=== PATIENT | male | born 1970 | race Caucasian/White ===

== ENCOUNTER → 2019-08-04 10:28 | Outpatient (BNVA) | payer BC, SELFPAY | PROVIDERS: Family Provider Nurse Practitioner; PCP Nurse Practitioner; Referring Provider Nurse Practitioner; Visit Provider Specialist | DX: G43.711 Chronic migraine without aura, intractable, with status migrainosus (principal) | CPT/HCPCS: 99204; 99214 ==

== ENCOUNTER → 2019-11-05 13:12 | Outpatient (BNVA) | payer BC, SELFPAY | PROVIDERS: Family Provider Nurse Practitioner; PCP Nurse Practitioner; Visit Provider Specialist | DX: G43.711 Chronic migraine without aura, intractable, with status migrainosus (principal) | CPT/HCPCS: 99213 ==

== ENCOUNTER → 2020-05-25 16:34 | Outpatient (BNVA) | payer SELFPAY | PROVIDERS: Family Provider Nurse Practitioner; PCP Nurse Practitioner; Visit Provider Nurse Practitioner Family | DX: S61.412A Laceration without foreign body of left hand, initial encounter (principal); X58.XXXA Exposure to other specified factors, initial encounter | CPT/HCPCS: 73130 ==

== ENCOUNTER → 2020-06-16 12:11 | Outpatient (BNVA) | payer BC, SELFPAY | PROVIDERS: Family Provider Nurse Practitioner; PCP Nurse Practitioner; Visit Provider Specialist | DX: G43.711 Chronic migraine without aura, intractable, with status migrainosus (principal) | CPT/HCPCS: 99213 ==

== ENCOUNTER → 2020-08-05 11:25 | Outpatient (BNVA) | payer BC, SELFPAY | PROVIDERS: Family Provider Nurse Practitioner; PCP Nurse Practitioner; Visit Provider Nurse Practitioner Family | DX: Z00.00 Encounter for general adult medical examination without abnormal findings (principal); Z12.5 Encounter for screening for malignant neoplasm of prostate; Z13.6 Encounter for screening for cardiovascular disorders; E55.9 Vitamin D deficiency, unspecified; R53.83 Other fatigue; G43.711 Chronic migraine without aura, intractable, with status migrainosus; Z79.899 Other long term (current) drug therapy; Z12.11 Encounter for screening for malignant neoplasm of colon | CPT/HCPCS: 80053; 80061; 81003; 82306; 83036; 84443; 85025; G0103 ==

== ENCOUNTER → 2020-09-27 11:17 | Outpatient (BNVA) | payer BC, SELFPAY | PROVIDERS: Family Provider Nurse Practitioner; PCP Nurse Practitioner Family; Visit Provider Internal Medicine | DX: Z12.11 Encounter for screening for malignant neoplasm of colon (principal); Z20.822 Contact with and (suspected) exposure to COVID-19 | CPT/HCPCS: 87635 ==

== ENCOUNTER 2020-10-01 08:41 | Day surgery (SDC) | payer BC, SELFPAY ==
[2020-09-29 12:08] VITALS: BMI 25.7
--- NOTE | 2020-10-01 08:55 | ANES.PREANE2 ---
Pre-Anesthetic Assessment Pre-Anesthetic Assessment: Height/Weight: Height 1.83 m Weight 86.183 kg Preop Diagnosis: Screening Proposed Procedure: Operation Date: 10/01/20 10:00 Proposed Procedures p Colonoscopy 64271 Z12.11(Not Applicable) - Jerry Ortiz MD Familial anesthetic complications: None Was Beta Lencho taken within 24 hours: N/A Was Clonidine taken within 24 hours: N/A Last intake: NPO > 8 hrs Social: Social History: No alcohol and No tobacco Exam: Pre-Anes Outpt Exam: alert, oriented x 3, clear to auscultation bilaterally and regular rate & rhythm Airway: Cervical ROM: WNL MP: 1 Dentition: Full Neuropsych: Neuropsych: [facility] Anesthetic Plan: ASA status: 1 Anesthesia: MAC Risk of > 500 ml blood loss (7ml/kg in children): No PFSH Anesthesia PFSH: Medical History (Updated 08/08/20 @ 19:10 by DEBORAH Mcgrath) Chronic migraine without aura, intractable, with status migrainosus Fatigue Hand injury Hematuria Hypertension screen Laceration of hand with foreign body Medication management Prostate cancer screening Sleep apnea Family History Other CAD (coronary artery disease) Denies family history of Diabetes Cancer Hypertension Stroke Social History Smoking and tobacco status: never smoked Alcohol intake: current Alcohol intake frequency: holidays/special occasions only History of recent travel: No Data Anesthesia Cardiac Studies: No Data to Display
--- NOTE | 2020-10-01 09:06 | W.PM.OPSFHP ---
Same Day Surgery H&P Indication for Procedure/HPI DATE OF PROCEDURE: October 01, 2020 CHIEF COMPLAINT/INDICATIONFOR SURGICAL PROCEDURE: Routine screening average risk PREOP DIAGNOSIS: Screening PLANNED PROCEDRUE: Operation Date: 10/01/20 10:00 Proposed Procedures p Colonoscopy 88970 Z12.11(Not Applicable) - Jerry Ortiz MD Medications/Allergies* Home Medications Medication Instructions Recorded Confirmed Type naproxen 250 mg tablet 500 mg PO BID PRN tab 08/04/19 09/29/20 History omega-3 fatty acids 1,000 mg 1,000 mg PO DAILY 08/04/19 09/29/20 History capsule multivitamin 1 tab PO DAILY 08/05/20 09/29/20 History Allergies/Adverse Reactions Allergy/AdvReac Type Severity Reaction Status Date / Time No Known Allergies Allergy Verified 08/05/20 08:17 Pertinent History/Comorbid Conditions* Medical History (Updated 08/08/20 @ 19:10 by DEBORAH Mcgrath) Chronic migraine without aura, intractable, with status migrainosus Fatigue Hand injury Hematuria Hypertension screen Laceration of hand with foreign body Medication management Prostate cancer screening Sleep apnea Family History (Updated 08/04/19 @ 11:04 by Erin Coello LPN) CAD (coronary artery disease) Denies family history of Diabetes Cancer Hypertension Stroke Social History Smoking and tobacco status: never smoked Alcohol intake: current Alcohol intake frequency: holidays/special occasions only History of recent travel: No Pertinent Exam Findings alert, oriented x 3, clear to auscultation bilaterally, regular rate & rhythm, operative site marked and procedure specific exam findings Recommendations Surgery/Procedure today Coding Level of Care Code Acute Safety Representative for [facility]
[2020-10-01 09:13] VITALS: BP 107/93; PULSE 82; RESP 16; TEMP 36.3; O2SAT 99
[2020-10-01] MEDS: sodium chloride 0.9% 1,000 ML 30 ML IV (09:24)
[2020-10-01 10:47] VITALS: BP 105/71; PULSE 66; RESP 16; TEMP 36.2; O2SAT 99
[2020-10-01 10:58] VITALS: BP 118/76; PULSE 71; RESP 16; O2SAT 100
--- NOTE | 2020-10-01 13:17 | ANE.PACU2 ---
Inpatient post-anesthesia follow up: Airway intact: Yes Vital signs: Temperature 97.1 F Pulse Rate 71 Respiratory Rate 16 Blood Pressure 118/76 Pulse Oximetry 100 Oxygen Delivery Me thod Room Air Oxygen Flow Rate Fraction of Inspir ed Oxygen Hydration adequate: Yes Nausea and vomiting: No Pain level: 2 Mental status: Baseline
== END 2020-10-01 11:08 | disposition home or self-care (01) ==
PROVIDERS: PCP Nurse Practitioner Family; Visit Provider Internal Medicine
PROC: 0DJD8ZZ Inspection of Lower Intestinal Tract, Via Natural or Artificial Opening Endoscopic (ICD-10-PCS; CPT 45378; principal; 2020-10-01 10:00)
DX: Z12.11 Encounter for screening for malignant neoplasm of colon (principal); G47.30 Sleep apnea, unspecified; Z82.49 Family history of ischemic heart disease and other diseases of the circulatory system
CPT/HCPCS: 45378; 96360; 96361; J2704; J7030

== ENCOUNTER → 2021-11-30 09:28 | Outpatient (BNVA) | payer BC, SELFPAY | PROVIDERS: PCP Nurse Practitioner Family; Visit Provider Nurse Practitioner Family | DX: Z00.00 Encounter for general adult medical examination without abnormal findings (principal); Z12.5 Encounter for screening for malignant neoplasm of prostate; Z13.6 Encounter for screening for cardiovascular disorders; G43.711 Chronic migraine without aura, intractable, with status migrainosus | CPT/HCPCS: 80053; 81000; 84153; 85025 ==

== ENCOUNTER → 2025-01-01 08:33 | Outpatient (BNVA) | payer BC, SELFPAY | PROVIDERS: PCP Nurse Practitioner Family; Visit Provider Nurse Practitioner Family | DX: Z12.5 Encounter for screening for malignant neoplasm of prostate (principal); R53.83 Other fatigue; Z13.6 Encounter for screening for cardiovascular disorders; Z79.899 Other long term (current) drug therapy | CPT/HCPCS: 80053; 80061; 81003; 82306; 83036; 84443; 85025; G0103 ==

== ENCOUNTER → 2025-01-13 11:37 | Outpatient (BNVA) | payer BC, SELFPAY | PROVIDERS: PCP Nurse Practitioner Family; Visit Provider Nurse Practitioner Family | DX: Z53.9 Procedure and treatment not carried out, unspecified reason (principal) | CPT/HCPCS: 83036 ==